=== PATIENT | male | born 1960 | race Caucasian/White ===

== ENCOUNTER → 2019-06-29 | Outpatient (CLI) | payer OTHER ==
[~2019-06-29] MED LIST: ZOLOFT25 MG PO; ZYRTEC 10 MG TA10 MG PO
[2019-06-29 11:32] LABS: URINE BILIRUBIN NEGATIVE (Negative); URINE BLOOD NEGATIVE (Negative); URINE CLARITY CLEAR; URINE COLOR YELLOW; URINE GLUCOSE-RANDOM NEGATIVE (Negative); URINE KETONES NEGATIVE (Negative); URINE LEUKOCYTES NEGATIVE (Negative); URINE NITRITE NEGATIVE (Negative); URINE PROTEIN NEGATIVE (Negative); URINE UROBILINOGEN 0.2 E.U./dl (0.2-1.0)
[2019-06-29 11:34] LABS: HEMATOCRIT 50.3 % (42.0-52.0); HEMOGLOBIN 17.1 gm/dL (14.0-18.0); MCH 29.9 pg (26.0-34.0); MCHC 33.9 g/dL (28.0-37.0); MCV 88.3 fL (80.0-100.0); MPV 8.2 fl. (7.2-11.1); NUCLEATED RBCS 0 /100WBC; PLATELET COUNT* 198 thou/uL (150-400); RDW-CV 14.4 % (10.5-14.5); WBC 9.2 thou/uL (4.0-11.0)
[2019-06-29 11:40] LABS: CALCIUM 10.3 mg/dL (8.5-10.1); CREATININE 1.3 mg/dL (0.6-1.3); POTASSIUM 4.2 mmol/L (3.5-5.1); TOTAL BILIRUBIN 0.5 mg/dL (<0.1-1.0); TOTAL PROTEIN 7.6 g/dL (6.4-8.2)
[2019-06-29 11:59] LABS: % SATURATION 18 % (20-39); IRON 57 ug/dL (50-175)
[2019-06-29 12:28] LABS: ABSOLUTE EOSINOPHILS 0.2 thou/uL (0.0-0.7); ABSOLUTE LYMPHOCYTES 1.8 thou/uL (0.8-5.3); ABSOLUTE MONOCYTES 0.2 thou/uL (0.0-1.2)
[2019-06-29 12:29] LABS: PLATELET ESTIMATE ADEQUATE
[2019-06-29 21:07] LABS: HEMOGLOBIN 17.2 g/dL (13.0-17.7)
--- NOTE | 2019-07-01 15:41 | HEMONC ---
[address] [address] HEMATOLOGY ONCOLOGY NOTE Name: JESSICAHERBERT Cal Room: [facility]#: [id number] Admission: 06/29/19 Attend Phys: Shahab Montalvo MD Discharge: Date of : 58 Report #: [id number] THIS REPORT FOR: //name// CC: Madi Montalvo DATE OF SERVICE: 06/29/2019 REASON FOR CONSULTATION: Polycythemia. REFERRING PHYSICIAN: Dr. Black. SUBJECTIVE: A 59-year-old male who had the past medical history of hypertension, diabetes, who was evaluated because of polycythemia. His labs were done on a routine basis on 05/31, which showed hemoglobin of 18.7 and hematocrit of 54.0. However, his platelet and white blood cells have been within normal range. The patient is completely asymptomatic. He denies any lightheadedness, numbness, tingling sensation, nausea and vomiting or abdominal pain. The patient does not have any constitutional symptoms like fever, chills, decreased appetite or fatigue. He denies any hematuria. He is not an active smoker. The patient reported that he had symptoms of sleep apnea including snoring; however, no morning headaches and urged to have a nap in the afternoon. REVIEW OF SYSTEMS: All systems are reviewed. It was negative except the above. PAST MEDICAL HISTORY: Hypertension, diabetes mellitus, depression, BPH. MEDICATIONS: Aspirin 81 mg p.o. daily, Lipitor 10 mg p.o. daily, Avodart 1 tab p.o. daily, lisinopril 5 mg p.o. daily, Claritin 10 mg p.o. daily, Zoloft 25 mg p.o. daily, Flomax 0.4 mg p.o. daily, metformin 1000 mg p.o. twice a day. PAST SURGICAL HISTORY: Incision and drainage for an abscess in 2006. SOCIAL HISTORY: No smoking. He drinks alcohol occasionally. ALLERGIES: None known allergies. FAMILY HISTORY: Grandfather with prostate cancer at age of 90. PHYSICAL EXAMINATION: VITAL SIGNS: Today, blood pressure is 110/70, respirations 16, temperature is 97.0, saturations 98% on room air. GENERAL: The patient was sitting in chair, was not in acute distress. LUNGS: Clear to auscultation bilaterally. HEART: Regular rate and rhythm. S1, S2 within normal limits[place] [address] HEMATOLOGY ONCOLOGY NOTE Name: HERBERT LOPEZ Room: [facility]#: [id number] Admission: 06/29/19 Attend Phys: Shahab Montalvo MD Discharge: Date of : 58 Report #: [id number] ABDOMEN: Soft, nontender, nondistended, bowel sounds positive. EXTREMITIES: No edema, no cyanosis, no clubbing. LYMPHATICS: No evidence of hepatosplenomegaly. ASSESSMENT AND PLAN: A 59-year-old male who is a nonsmoker, was evaluated because of polycythemia. The patient does not have any other constitutional symptoms; however, he reported snoring and might have symptoms suggestive of obstructive sleep apnea. 1. I would like to obtain myeloproliferative workup to rule out any primary hematological disorder including polycythemia vera. We will obtain erythropoietin level and JAK2 mutation. 2. Other secondary causes will be ruled out by obtaining urinalysis, chest x-ray and CT scan of the abdomen and pelvis to rule out any secreting tumors. If workup is inconclusive, the next step will be referring the patient to sleep apnea study. <ELECTRONICALLY SIGNED> By: Shahab Montalvo MD 07/01/19 1541 [id number] [id number] Montalvo MD /nt
== END ==
LOC: M.RTH 10:00
PROVIDERS: Internal Medicine
DX: D75.1 Secondary polycythemia (principal)

== ENCOUNTER → 2019-07-06 | Outpatient (CLI) | payer OTHER | LOC: M.RAD 14:14 → M.ULTRA 15:00 | DX: N28.1 Cyst of kidney, acquired (principal); N20.0 Calculus of kidney; D21.9 Benign neoplasm of connective and other soft tissue, unspecified; D75.1 Secondary polycythemia; I10 Essential (primary) hypertension ==

== ENCOUNTER → 2019-07-13 | Outpatient (CLI) | payer OTHER ==
--- NOTE | 2019-07-14 12:15 | HEMONC ---
[address] [address] HEMATOLOGY ONCOLOGY NOTE Name: HERBERT LOPEZ Room: [facility]#: [id number] Admission: 07/13/19 Attend Phys: Shahab Montalvo MD Discharge: Date of : 58 Report #: [id number] THIS REPORT FOR: //name// CC: Shahab Pierce DO DATE OF SERVICE: 07/13/2019 CLINIC NOTE DIAGNOSIS: Secondary polycythemia. SUBJECTIVE: The patient presented today as a followup on his workup, which included repeated hemoglobin, which was 17.2 considered within normal range. However, it was on the high normal. However, his erythropoietin level came back within normal range. Genetic testing including JAK2 mutation, MPL calreticulin came back negative. Also, a BCR-ABL also came back negative. Chest x-ray was within normal range. CT abdomen did not show any acute abnormalities. Liver and spleen are within normal range. The patient had small bilateral nonobstructing renal calculi, which was asymptomatic. REVIEW OF SYSTEMS: All systems are reviewed. It was negative except the above. PAST MEDICAL, SOCIAL, AND FAMILY HISTORY: Unchanged from previous visit. MEDICATIONS: List has been reviewed. PHYSICAL EXAMINATION: VITAL SIGNS: Today, blood pressure is 135/85 with a pulse of 82, respiration is 18, sat is 97%, temperature is 97.5. GENERAL: The patient was sitting in chair, was not in acute distress. LUNGS: Clear to auscultations bilaterally. HEART: Regular rate and rhythm. S1, S2 within normal limits. ABDOMEN: Soft, nontender, nondistended. ASSESSMENT AND PLAN: A 59-year-old male who was evaluated because of secondary polycythemia. Workup for MPN came back negative including JAK2 came back negative. Erythropoietin is within normal range. Imaging including chest x-ray, CT abdomen [place] [address] HEMATOLOGY ONCOLOGY NOTE Name: HERBERT LOPEZ Room: [facility]#: [id number] Admission: 07/13/19 Attend Phys: Shahab Montalvo MD Discharge: Date of : 58 Report #: [id number] abnormalities. At this point, recommend sleep study to rule out any possibility of secondary causes including obstructive sleep apnea. <ELECTRONICALLY SIGNED> By: Shahab Montalvo MD 07/14/19 1215 1043 [id number] Montalvo MD /nt
== END ==
LOC: M.RTH 05:29
DX: D75.1 Secondary polycythemia (principal)

== ENCOUNTER 2020-06-11 15:06 | Emergency (ER) | payer OTHER ==
[~2020-06-11] VITALS: Ht 167.6 cm; Wt 81.7 kg
[2020-06-11] MEDS ORDERED: LIPITOR 20 MG T20 M1 PO (15:19)
[2020-06-11] MEDS ORDERED: DUTASTERIDE0.5 MG PO (15:19)
[2020-06-11] MEDS ORDERED: LISINOPRIL2.5 MG PO (15:19)
[2020-06-11] MEDS ORDERED: FLOMAX0.4 MG PO (15:20)
[2020-06-11] MEDS ORDERED: METFORMIN HCL500 M3 PO (15:20)
[2020-06-11] MEDS ORDERED: ASA81BEC PO (15:20)
[2020-06-11 16:48] VITALS: BP 146/96
== END 2020-06-11 16:49 | disposition home or self-care (01) ==
LOC: M.ERS 15:06
DX: M25.562 Pain in left knee (principal); I10 Essential (primary) hypertension; E11.9 Type 2 diabetes mellitus without complications; E78.00 Pure hypercholesterolemia, unspecified; Z88.8 Allergy status to other drugs, medicaments and biological substances; Z79.899 Other long term (current) drug therapy